=== PATIENT | female | born 1970 | race Caucasian/White ===

== ENCOUNTER → 2016-08-17 | Outpatient (CLI) | payer OTHER | END | disposition home or self-care (01) | LOC: MAMMO 08:54 → US 09:30 → MAMMO 10:00 | DX: N60.01 Solitary cyst of right breast (principal); N63 Unspecified lump in breast; N60.02 Solitary cyst of left breast ==

== ENCOUNTER 2016-11-10 20:58 | Emergency (ER) | payer OTHER ==
[~2016-11-10] VITALS: Wt 77.1 kg
[2016-11-10] MEDS ORDERED: VENLAFAXINE HYD75 M3 PO (21:14)
[2016-11-10] MEDS ORDERED: D3-5050000 IU PO (21:14)
[2016-11-10] MEDS ORDERED: OXYCODONE HCL5 MG PO (21:14)
[2016-11-10] MEDS ORDERED: CEFDINIR300 MG PO (21:14)
== END 2016-11-11 01:59 | disposition home or self-care (01) ==
LOC: ED 20:58
DX: G89.18 Other acute postprocedural pain (principal); Z88.2 Allergy status to sulfonamides; Z79.899 Other long term (current) drug therapy

== ENCOUNTER 2018-09-18 18:50 | Emergency (ER) | payer BC ==
[~2018-09-18] VITALS: Ht 175.2 cm; Wt 74.8 kg
--- NOTE | ~2018-09-18 | EKG ---
[place], [place] ELECTROCARDIOGRAM REPORT NAME: MIGUEL KRAMER UNIT #: [id number] ROOM: DOCTOR: EPIPHANY DRAFT REPORT BIRTHDATE: [birth year] [facility] Test Date: 2018-09-18 Test Time: 19:46:27 Pat Name: MIGUEL KRAMER Department: Room: Gender: F [employer]: : 1970 Requested By: GENEVA ELIZABETH Order Number: [id number] Reading MD: Justin Hackett MD Measurements Intervals [place] Rate: 70 P: 75 [place]: 140 QRS: 59 QRSD: 81 T: 44 QT: 388 QTc: 419 Interpretive Statements Sinus rhythm Electronically Signed On 09-20-2018 9:33:29 PST by Justin Hackett MD CM:EKGRPT:ELECTROCARDIOGRAM REPORT [id number] GENEVA ELIZABETH MD EPIPHANY DRAFT REPORT GENEVA ELIZABETH MD
[~2018-09-18 18:50] MED LIST: CEFDINIR300 MG PO; D3-5050000 IU PO; OXYCODONE HCL5 MG PO; VENLAFAXINE HYD75 M3 PO
[2018-09-18 19:35] LABS: BASO % 0.8 % (0.0-1.0); EOS # 0.1 10*3/uL (0.0-0.4); EOS % 1.6 % (1.0-4.0); HEMATOCRIT 38.4 % (37.0-47.0); HEMOGLOBIN 13.1 g/dl (12.0-16.0); LYMPH # 1.9 10*3/uL (1.3-4.4); LYMPH % 37.6 % (27.0-41.0); MEAN CELL VOLUME 89.3 fl (81.0-99.0); MEAN CORPUSCULAR HGB 30.5 pg (27.0-31.0); MEAN CORPUSCULAR HGB CONC 34.1 g/dl (33.0-37.0); MEAN PLATELET VOLUME 10.2 fl (9.6-12.3); MONO # 0.4 10*3/uL (0.1-1.0); MONO % 8.1 % (3.0-9.0); NEUT # 2.6 10*3/uL (2.3-7.9); NEUT % 51.7 % (47.0-73.0); PLATELET COUNT AUTOMATED 197 10*3/uL (130-400); RED CELL DISTRI WIDTH 11.8 % (0-14.5)
[2018-09-18 19:50] LABS: ACETAMINOPHEN (TYLENOL) < 5.0 ug/ml (10-30); ALBUMIN 3.9 gm/dl (3.1-4.5); ALKALINE PHOSPHATASE 56 U/L (45-117); BUN 8 mg/dl (7-24); CHLORIDE 105 mmol/L (98-107); CREATININE 0.85 mg/dL (0.55-1.02); ETHYL ALCOHOL < 3.0 mg/dl (<3); POTASSIUM 4.1 mmol/L (3.5-5.1); SGOT/AST 12 IU/L (3-35); SGPT/ALT 23 U/L (12-78); SODIUM 139 mmol/L (136-145); TOTAL PROTEIN 7.8 gm/dL (6.4-8.2)
[2018-09-18 20:13] LABS: BILIRUBIN NEGATIVE (NEGATIVE); BLOOD TRACE-INTACT (NEGATIVE); CLARITY SL CLOUDY (CLEAR); COLOR YELLOW (YELLOW); GLUCOSE NEGATIVE (NEGATIVE); KETONE NEGATIVE (NEGATIVE); LEUKO ESTERASE 3+ (NEGATIVE); NITRITE NEGATIVE (NEGATIVE); PH 7.5 (5.0-9.0); SPECIFIC GRAVITY <= 1.005 (1.005-1.030); UROBILINOGEN 0.2 E.U./dl (0.2-1.0)
[2018-09-18 20:19] LABS: URINE AMPHETAMINES < 1000 (1000ng/ml); URINE BARBITURATES < 200 (200ng/ml); URINE BENZODIAZEPINES > 200 (200ng/ml); URINE CANNABINOIDS (THC) < 50 (50ng/ml); URINE COCAINE < 300 (300ng/ml); URINE METHADONE < 300 (300ng/ml); URINE OPIATES < 300 (300ng/ml)
[2018-09-18 20:23] LABS: URINE PHENCYCLIDINE < 25 (25ng/ml)
[2018-09-18 20:27] LABS: BACTERIA 2+; RBC 0-2 rbc/hpf (0-2)
== END 2018-09-19 03:08 | disposition home health service (06) ==
LOC: ED 18:50
PROVIDERS: Emergency Medicine Emergency Medical Services
DX: F32.9 Major depressive disorder, single episode, unspecified (principal); F41.0 Panic disorder [episodic paroxysmal anxiety]; R45.851 Suicidal ideations; G89.18 Other acute postprocedural pain; Z88.2 Allergy status to sulfonamides

== ENCOUNTER → 2020-05-27 | Outpatient (CLI) | payer BC | END | disposition home or self-care (01) | LOC: CARD 07:14 | PROVIDERS: ATTEND Nurse Practitioner Family | DX: R06.02 Shortness of breath (principal); R60.0 Localized edema; R42 Dizziness and giddiness ==

== ENCOUNTER → 2020-09-07 | Outpatient (CLI) | payer BC | END | disposition home or self-care (01) | LOC: COVID19 15:52 | PROVIDERS: ATTEND Internal Medicine Gastroenterology | DX: Z01.812 Encounter for preprocedural laboratory examination (principal); Z20.822 Contact with and (suspected) exposure to COVID-19 ==

== ENCOUNTER → 2020-10-23 | Outpatient (CLI) | payer BC ==
[2020-10-23 09:01] LABS: EOS # 0.1 10*3/uL (0.0-0.4); EOS % 1.6 % (1.0-4.0); HEMATOCRIT 38.4 % (37.0-47.0); LYMPH # 1.2 10*3/uL (1.3-4.4); LYMPH % 31.3 % (27.0-41.0); MEAN CELL VOLUME 89.9 fl (81.0-99.0); MEAN CORPUSCULAR HGB CONC 33.3 g/dl (33.0-37.0); MEAN PLATELET VOLUME 10.1 fl (9.6-12.3); MONO # 0.3 10*3/uL (0.1-1.0); MONO % 8.8 % (3.0-9.0); NEUT # 2.2 10*3/uL (2.3-7.9); PLATELET COUNT AUTOMATED 183 10*3/uL (130-400); RED BLOOD COUNT 4.27 10*6/uL (4.10-5.10); WHITE BLOOD COUNT 3.9 10*3/uL (4.8-10.8)
[2020-10-23 09:30] LABS: ALBUMIN 3.6 gm/dl (3.1-4.5); ALKALINE PHOSPHATASE 58 U/L (45-117); BUN 9 mg/dl (7-24); CHLORIDE 105 mmol/L (98-107); CREATININE 0.76 mg/dL (0.55-1.02); SGOT/AST 17 IU/L (3-35); SGPT/ALT 28 U/L (12-78); SODIUM 139 mmol/L (136-145); TOTAL PROTEIN 7.1 gm/dL (6.4-8.2)
[2020-10-23 09:36] LABS: BILIRUBIN Negative (Negative); BLOOD Negative (Negative); CLARITY Cloudy (Clear); COLOR Yellow (Yellow); GLUCOSE Negative (Negative); KETONE Negative (Negative); LEUKO ESTERASE Negative (Negative); NITRITE Negative (Negative)
[2020-10-23 13:35] LABS: BACTERIA 3+; EPITHELIAL CELLS 21-30
== END | disposition home or self-care (01) ==
LOC: LAB 08:34
PROVIDERS: ATTEND Orthopaedic Surgery
DX: Z01.818 Encounter for other preprocedural examination (principal); M77.11 Lateral epicondylitis, right elbow

== ENCOUNTER → 2020-12-18 | Outpatient (CLI) | payer BC | LOC: LAB 13:07 | PROVIDERS: ATTEND Family Medicine | DX: R76.0 Raised antibody titer (principal) ==

== ENCOUNTER → 2021-01-07 | Outpatient (CLI) | payer BC ==
[2021-01-08 04:06] LABS: FOLLICLE STIMULATING HORMONE 60.8 mIU/mL (.); LUTEINIZING HORMONE 37.2 mIU/mL (.)
[2021-01-10 21:06] LABS: TESTOSTERONE FREE, (DIRECT) 1.8 pg/mL (0.0-4.2)
== END | disposition home or self-care (01) ==
LOC: LAB 09:13
PROVIDERS: ATTEND Family Medicine
DX: E03.9 Hypothyroidism, unspecified (principal); R53.83 Other fatigue

== ENCOUNTER → 2021-07-19 | Outpatient (CLI) | payer BC ==
[2021-07-19 08:40] LABS: MEAN CELL VOLUME 92.4 fl (81.0-99.0); MEAN CORPUSCULAR HGB CONC 32.5 g/dl (33.0-37.0); MEAN PLATELET VOLUME 9.9 fl (9.6-12.3); RED BLOOD COUNT 4.33 10*6/uL (4.10-5.10); RED CELL DISTRI WIDTH 12.5 % (0-14.5); WHITE BLOOD COUNT 3.9 10*3/uL (4.8-10.8)
[2021-07-19 08:58] LABS: ALBUMIN 3.4 gm/dl (3.1-4.5); BUN 16 mg/dl (7-24); CHLORIDE 107 mmol/L (98-107); POTASSIUM 3.7 mmol/L (3.5-5.1); SGOT/AST 11 IU/L (3-35); SGPT/ALT 21 U/L (12-78); SODIUM 140 mmol/L (136-145)
[2021-07-19 09:09] LABS: ALKALINE PHOSPHATASE 50 U/L (45-117); FREE T4 0.77 ng/dl (0.76-1.46); TOTAL PROTEIN 7.5 gm/dL (6.4-8.2)
[2021-07-19 09:25] LABS: VITAMIN D, 25-HYDROXY 38.6 ng/mL (30-100)
[2021-07-20 04:06] LABS: FOLLICLE STIMULATING HORMONE 54.6 mIU/mL (.); LUTEINIZING HORMONE 37.4 mIU/mL (.)
[2021-07-20 05:06] LABS: RHEUMATOID ARTHRITIS FACTOR <10.0 IU/mL (<14.0)
[2021-07-20 22:06] LABS: TESTOSTERONE FREE, (DIRECT) 2.4 pg/mL (0.0-4.2)
== END | disposition home or self-care (01) ==
LOC: LAB 08:17
PROVIDERS: ATTEND Family Medicine
DX: M25.50 Pain in unspecified joint (principal); E74.00 Glycogen storage disease, unspecified; R53.1 Weakness; L68.0 Hirsutism; F41.1 Generalized anxiety disorder; Z78.0 Asymptomatic menopausal state

== ENCOUNTER → 2023-08-25 | Outpatient (CLI) | payer OTHER ==
[2023-08-25 07:52] LABS: HEMATOCRIT 40.2 % (37.0-47.0); MEAN CELL VOLUME 91.6 fl (81.0-99.0); MEAN CORPUSCULAR HGB 30.5 pg (27.0-31.0); MEAN CORPUSCULAR HGB CONC 33.3 g/dl (33.0-37.0); MEAN PLATELET VOLUME 9.5 fl (9.6-12.3); RED BLOOD COUNT 4.39 10*6/uL (4.10-5.10); RED CELL DISTRI WIDTH 12.1 % (0-14.5); WHITE BLOOD COUNT 3.8 10*3/uL (4.8-10.8)
[2023-08-25 08:37] LABS: ALKALINE PHOSPHATASE 54 U/L (46-116); BUN 10 mg/dl (9-23); CHLORIDE 105 mmol/L (98-107); CHOLESTEROL 220 mg/dL (<200); FREE T4 1.05 ng/dl (0.89-1.76); LDL CHOLESTEROL 139 mg/dL (9-159); POTASSIUM 3.8 mmol/L (3.4-5.1); SGPT/ALT 19 U/L (5-49); TOTAL PROTEIN 7.3 gm/dL (6.0-8.0); TRIGLYCERIDES 68 mg/dl (<150)
[2023-08-25 08:38] LABS: VITAMIN D, 25-HYDROXY 64.1 ng/mL (30-100)
[2023-08-26 04:07] LABS: THYROID PEROXIDASE (TPO) AB <9 IU/mL (0-34)
[2023-08-26 05:10] LABS: IMMUNOGLOBULIN G, QNT 1156 mg/dL (586-1602); IMMUNOGLOBULIN M, QNT 499 mg/dL (26-217)
[2023-08-26 10:51] LABS: HBSAG Negative (Negative); HEP B CORE AB, IGM Negative (Negative); HEPATITIS C ANTIBODY Non Reactive (Non Reactive)
[2023-08-28 14:07] LABS: THYROGLOBULIN ANTIBODY <1.0 IU/mL (0.0-0.9)
[2023-08-28 18:06] LABS: ANTI-DSDNA ANTIBODIES 1 IU/mL (0-9); SJOGREN ANTI-SS-A <0.2 AI (0.0-0.9); SJOREN AB, ANTI-SS-B 0.2 AI (0.0-0.9)
== END | disposition home or self-care (01) ==
LOC: LAB 07:25
PROVIDERS: ATTEND Family Medicine
DX: E78.00 Pure hypercholesterolemia, unspecified (principal); R51.9 Headache, unspecified; E55.9 Vitamin D deficiency, unspecified; R53.83 Other fatigue; M54.50 Low back pain, unspecified; Z78.0 Asymptomatic menopausal state; M25.50 Pain in unspecified joint